=== PATIENT | female | born 1940 ===

== ENCOUNTER 2023-01-07 12:04 | Observation (INO) | payer MEDICARE, MEDICAID ==
[2023-01-07] MEDS ORDERED: Aspirin 81 mg Enteric Coated Tablet ONE (12:47)
[2023-01-07] MEDS ORDERED: Atropine Sulfate 1 mg/10 ml Syringe ONE (12:47)
[2023-01-07 13:06] LABS: #Basophils 0.1 thou/uL (0.0-0.2); #Eosinphils 0.2 thou/uL (0.0-0.7); #Monocytes 0.9 thou/uL (0.11-0.59); #Neutrophils 5.1 thou/uL (1.40-6.50); %Basophils 0.7 % (0.0-1.0); %Eosinophils 2.4 % (0.0-10.0); %Lymphocytes 26.1 % (21.0-51.0); %Monocytes 10.9 % (0.0-10.0); %Neutrophils 59.7 % (42.0-75.0); Hematocrit 39.8 % (36.0-47.0); Hemoglobin 12.8 g/dL (12.0-16.0); Mean Corpuscular HGB CONC 32.2 g/dL (32.0-36.0); Mean Corpuscular Hemoglobin 30.1 pg (27.0-31.0); Mean Corpuscular Volume 93.6 fl (78.0-98.0); Mean Platelet Volume 11.3 fL (7.4-10.4); Platelet Count 174 10x3/uL (130-400); RBC Distribution Width 14.2 % (11.5-14.5); Red Blood Cell (RBC) Count 4.25 mill/uL (4.20-5.40); White Blood Cell (WBC) Count 8.6 10x3/uL (4.8-10.8)
[2023-01-07 13:34] LABS: Troponin I 0.026 ng/mL (< 0.028)
[2023-01-07 13:36] LABS: ALT (SGPT) 21 U/L (8-55); AST (SGOT) 25 U/L (5-34); Albumin 3.7 g/dL (3.4-4.8); Alkaline Phosphatase 68 U/L (40-110); Anion Gap 13 mmol/L (10-20); BUN (Urea Nitrogen) 21 mg/dL (9.8-20.1); Bilirubin, Total 0.6 mg/dL (0.2-1.2); Calc. Creatinine Clearance 0 mL/min (70-130); Calcium 9.2 mg/dL (7.8-10.44); Carbon Dioxide 21 mmol/L (23-31); Chloride 109 mmol/L (98-107); Estimated GFR 56; Globulin 3.4 g/dL (2.4-3.5); Glucose 93 mg/dL (83-110); INR-International Normal Ratio 1.1; Magnesium 1.7 mg/dL (1.6-2.6); PTT 28.5 sec (22.9-36.1); Potassium 3.8 mmol/L (3.5-5.1); Protein, Total 7.1 g/dL (5.8-8.1); Prothrombin Time 14.2 sec (12.0-14.7); Sodium 139 mmol/L (136-145)
[2023-01-07] MEDS ORDERED: Lidocaine 1% (PF) 30 ML VIAL ONE ×2 (15:19→15:30)
[2023-01-07] MEDS ORDERED: Vancomycin HCl 500 MG VIAL ONE (15:37)
[2023-01-07] MEDS ORDERED: Midazolam HCl 2 mg/2 ml Vial ONE (15:38)
[2023-01-07] MEDS ORDERED: fentaNYL 50 mcg/mL 1 mL Vial ONE (15:38)
[2023-01-07] MEDS ORDERED: Clindamycin/D5W 900 mg/50 ml Premix Bag ONE (15:39)
[2023-01-07] MEDS ORDERED: LevoFLOXacin 500 mg/D5W 100 ML BAG ONE (15:44)
[2023-01-07 19:57] VITALS: BMI 34.2
[2023-01-07 21:16] LABS: Troponin I 0.159 ng/mL (< 0.028)
[2023-01-08 00:21] LABS: Troponin I 0.285 ng/mL (< 0.028)
[2023-01-08] MEDS ORDERED: hydrALAZINE 20 MG/ML VIAL SLOW IVP SCH (00:30)
[2023-01-08] MEDS ORDERED: Lisinopril 20 MG TAB PO SCH ×2 (04:00→09:00)
[2023-01-08] MEDS ORDERED: Hydrochlorothiazide 25 MG TAB PO SCH ×2 (04:00→09:00)
[2023-01-08] MEDS ORDERED: Melatonin 3 MG TAB PO SCH (04:00)
[2023-01-08] MEDS ORDERED: Ondansetron PF 4 MG/2 ML Vial IVP PRN (08:21)
[2023-01-08] MEDS ORDERED: Bisacodyl 5 MG TAB PO PRN (08:21)
[2023-01-08] MEDS ORDERED: HYDROcodone/Acetaminophen 5/325 mg Tablet PO PRN ×2 (08:21)
[2023-01-08] MEDS ORDERED: hydrALAZINE 20 MG/ML VIAL SLOW IVP PRN (08:21)
[2023-01-08] MEDS ORDERED: Simvastatin 20 MG TAB PO SCH (08:21)
[2023-01-08] MEDS ORDERED: Acetaminophen 325 MG TAB PO PRN (08:21)
[2023-01-08] MEDS ORDERED: dilTIAZem CD 240 MG CAP PO SCH (09:00)
[2023-01-08 13:27] VITALS: TEMP 97.3
[2023-01-08 17:00] VITALS: BP 148/64
[2023-01-08] MEDS ORDERED: Atorvastatin Calcium 10 MG TAB PO SCH (21:00)
== END 2023-01-08 19:55 ==
LOC: ERS 12:04 → ERHOLD 14:31 → 2NO 16:47
PROVIDERS: ADMIT Internal Medicine; ATTEND Internal Medicine
PROC: 5A1223Z Performance of Cardiac Pacing, Continuous (ICD-10-PCS; principal; 2023-01-07)
PROC: 02H63JZ Insertion of Pacemaker Lead into Right Atrium, Percutaneous Approach (ICD-10-PCS; 2023-01-07)
PROC: 02HK3JZ Insertion of Pacemaker Lead into Right Ventricle, Percutaneous Approach (ICD-10-PCS; 2023-01-07)
DX: I44.2 Atrioventricular block, complete (principal); E78.5 Hyperlipidemia, unspecified; F03.90 Unspecified dementia, unspecified severity, without behavioral disturbance, psychotic disturbance, mood disturbance, and anxiety; I11.0 Hypertensive heart disease with heart failure; I50.9 Heart failure, unspecified; M19.90 Unspecified osteoarthritis, unspecified site; G45.9 Transient cerebral ischemic attack, unspecified; R60.0 Localized edema; R00.1 Bradycardia, unspecified; I45.5 Other specified heart block; Z90.89 Acquired absence of other organs; Z90.49 Acquired absence of other specified parts of digestive tract; Z98.51 Tubal ligation status; Z98.890 Other specified postprocedural states; Z88.0 Allergy status to penicillin; Z98.49 Cataract extraction status, unspecified eye; Z88.1 Allergy status to other antibiotic agents; Z79.899 Other long term (current) drug therapy
CPT/HCPCS: 33208; 71045 ×2; 83735; 83880; 84484 ×2; 85610; 85730; 93005; 93306; 93798; 94760; 96374 ×2; 99285; C1785; C1898 ×2; G0378 ×3; J0360; J0461; 36415; 80053; 84443; 85025; J1956; J2001; J2250; J3010; J3370; J3490